=== PATIENT | female | born 1995 | race Caucasian/White ===

== ENCOUNTER 2019-05-24 16:34 | Inpatient (IN) | payer OTHER ==
[~2019-05-24] VITALS: Ht 160 cm; Wt 56.7 kg
--- NOTE | 2019-05-24 16:50 | NUR ---
ED Nurse Note: Patient walked into ED c/o nausea and vomiting since this morning. patient reports she has hx of type 1 dm and cyclic vomiting. patient is alert awake x4 ambulatory
[2019-05-24] MEDS ORDERED: Morphine Sulfate 4mg/ml Inj (IV USE ONLY) IVP ONE ×2 (17:00→21:15)
--- NOTE | 2019-05-24 17:15 | NUR ---
ED Nurse Note: Endorsed patient to Dennise RN. patient transferred to bed 1
--- NOTE | 2019-05-24 17:20 | NUR ---
attempted EKG, patient actively vomiting. will attempt ekg later. ermd notified.
[2019-05-24 17:25] LABS: BASOPHILS % (AUTO) 0.5 % (0.0-2.0); HEMATOCRIT 41.9 % (37.0-47.0); HEMOGLOBIN 13.7 G/DL (12.0-16.0); LYMPHOCYTES % (AUTO) 14.8 % (20.0-45.0); MEAN CORPUSCULAR VOLUME 84 FL (80-99); NEUTROPHILS % (AUTO) 79.7 % (45.0-75.0); PLATELET COUNT 515 K/UL (150-450); RED BLOOD COUNT 4.97 M/UL (4.20-5.40); RED CELL DISTRIBUTION WIDTH 11.6 % (11.6-14.8)
--- NOTE | 2019-05-24 17:26 | NUR ---
ED Nurse Note: pt vomitted, ermd made aware and ordered zorfran iv, pt able to tolerate well.
[2019-05-24 17:29] LABS: APPEARANCE,URINE SLIGHTLY CLOUDY; BILIRUBIN, URINE NEGATIVE (NEGATIVE); GLUCOSE, URINE (UA) 4+ (NEGATIVE); KETONES,URINE 4+ (NEGATIVE); LEUKOCYTE ESTERASE ,URINE 1+ (NEGATIVE); NITRITE,URINE NEGATIVE (NEGATIVE); PH,URINE 6 (4.5-8.0); PROTEIN,URINE 4+ (NEGATIVE); UROBILINOGEN,URINE 1 MG/DL (0.0-1.0)
[2019-05-24 17:30] VITALS: BP 186/99
[2019-05-24 17:33] LABS: COLOR,URINE YELLOW
[2019-05-24 17:40] LABS: ANION GAP 15 mmol/L (5-15); BLOOD UREA NITROGEN 16 mg/dL (7-18); CALCIUM 9.4 MG/DL (8.5-10.1); CARBON DIOXIDE 21 MMOL/L (21-32); CHLORIDE 104 MMOL/L (98-107); CREATININE 1.4 MG/DL (0.55-1.30); POTASSIUM 3.6 MMOL/L (3.5-5.1); SODIUM 140 MMOL/L (136-145)
[2019-05-24 17:45] LABS: ALANINE AMINOTRANSFERASE 30 U/L (12-78); ALBUMIN 3.8 G/DL (3.4-5.0); ALKALINE PHOSPHATASE 59 U/L (46-116); ASPARTATE AMINO TRANSFERASE 23 U/L (15-37); BILIRUBIN,TOTAL 0.9 MG/DL (0.2-1.0)
[2019-05-24] MEDS ORDERED: LORazepam Inj 2mg/ml 1ml IV ONE ×2 (17:45→20:15)
--- NOTE | 2019-05-24 18:10 | NUR ---
ED Nurse Note: pt is still vomiting, ermd made aware and ordered ivpb mag so4.
--- NOTE | 2019-05-24 18:15 | Diagnostic Imaging Report ---
EXAM: XR Chest, 1 View CLINICAL HISTORY: PAIN TECHNIQUE: Frontal view of the chest. COMPARISON: No relevant prior studies available. FINDINGS: Lungs: Unremarkable. No consolidation. Pleural space: Unremarkable. No pneumothorax. Heart: Unremarkable. No cardiomegaly. Mediastinum: Unremarkable. Bones/joints: Unremarkable. IMPRESSION: No evidence of acute pulmonary disease
[2019-05-24] MEDS ORDERED: HUMALOG100 UNIT/4 SUBQ (18:19)
--- NOTE | 2019-05-24 18:31 | Emergency Room Report ---
History of Present Illness General Chief Complaint: Abdominal Pain Source: Patient (Florentin Ramires) Present Illness HPI 23-year-old female with history of type 1 diabetes here complaining of a 1 day of multiple bouts of emesis and epigastric abdominal pain. Patient reports that she used cocaine last week as well as has been eating cake for the past few days. Patient is from [place] [facility]. Denies any alcohol intake. Patient reports that she checks her sugar every day and is compliant with her insulin. Patient reports that she has an unknown condition that causes her to have multiple bouts of emesis and usually takes Ativan, Phenergan, and Zofran. Patient reports shortness of breath however denies chest pain, palpitation, diarrhea, blood in her emesis. Patient appears in moderate distress with jerking movements as well as active emesis. She appears to be cyclic bouts of hematemesis. Denies any drug use and tobacco smoke. Denies syncope loss of consciousness, and all other associated symptoms. Denies urinary symptoms (Florentin Ramires) Allergies: Coded Allergies: No Known Allergies (Unverified , 05/24/19) Patient History Past Medical History: see triage record Past Surgical History: unable to obtain Pertinent Family History: none Last Menstrual Period: 05/08/19 Now: No Immunizations: UTD Reviewed Nursing Documentation: PMH: Agreed; PSxH: Agreed (Florentin Ramires) Nursing Documentation-PMH Past Medical History: No History, Except For Hx Diabetes: Yes - type I History Of Psychiatric Problem: Yes - bipolar (Florentin Ramires) Review of Systems All Other Systems: negative except mentioned in HPI (Florentin Ramires) Physical Exam Vital Signs Date Time Temp Pulse Resp B/P (MAP) Pulse Ox O2 Delivery O2 Flow Rate FiO2 05/24/19 16:41 98.4 110 18 186/99 (128) 100 Room Air Sp02 EP Interpretation: abnormal General Appearance: alert, GCS 15, non-toxic, moderate distress Head: normocephalic, atraumatic Eyes: bilateral eye normal inspection, bilateral eye PERRL ENT: normal ENT inspection, hearing grossly normal, normal pharynx Neck: normal inspection, full range of motion, supple, thyroid normal, no carotid bruits Respiratory: normal inspection, chest non-tender, lungs clear, no rhonchi, no respiratory distress, no accessory muscle use, no wheezing Cardiovascular #1: no edema, no murmur, normal capillary refill, tachycardia Gastrointestinal: normal inspection, non tender, soft, no peritonitis, no bruit , no guarding, no hernia, no pulsatile mass, no rebound Rectal: deferred Genitourinary: no CVA tenderness Musculoskeletal: normal inspection, back normal, digits/nails normal Neurologic: normal inspection, alert, oriented x3, responsive Psychiatric: normal inspection, judgement/insight normal, memory normal Skin: no rash Lymphatic: normal inspection, no adenopathy (Florentin Ramires) Medical Decision Making PA Attestation All my diagnosis and treatment plans were reviewed ad discussed with my supervising physician Dr. Sanchez (Florentin Ramires) Diagnostic Impression: Primary Impression: Cyclic vomiting syndrome ER Course 23-year-old female with history of type 1 diabetes here complaining of a 1 day of multiple bouts of emesis and epigastric abdominal pain. Patient reports that she used cocaine last week as well as has been eating cake for the past few days. Patient is from [place] [facility]. Denies any alcohol intake. Patient reports that she checks her sugar every day and is compliant with her insulin. Patient reports that she has an unknown condition that causes her to have multiple bouts of emesis and usually takes Ativan, Phenergan, and Zofran. Patient reports shortness of breath however denies chest pain, palpitation, diarrhea, blood in her emesis. Patient appears in moderate distress with jerking movements as well as active emesis. She appears to be cyclic bouts of hematemesis. Denies any drug use and tobacco smoke. Denies syncope loss of consciousness, and all other associated symptoms. Denies urinary symptoms Ddx considered but are not limited to: appendicitis, cholecystis, gastritis, gastroenteritis, UTI, pyelonephritis, SBO, diverticulitis, influenza with GI manifestation, SC, DKA, cyclic vomiting syndrome Vital signs: are WNL, pt. is afebrile H&PE are most consistent with: Cyclic vomiting syndrome ORDERS: EKG, abdominal site,DKA work up, ED INTERVENTIONS: NS bolus, Haldol, Ativan, Zofran, Phenergan, rocephin Patient was admited with diagnosis of cyclic vomiting syndrome to Dr. Ruiz under supervision of DrWilian: Daniel pt stable at time of admission Creatinine of 1.4, glucose of 254,leukocytes and urine (Florentin Ramires) ER Course Signed out to me pending CT pelvis. She is being admitted for cyclic vomiting syndrome. CT is unremarkable except for small hiatal hernia. No obstruction. (Abhijeet Guerin MD) EKG Diagnostic Results Rate: normal Rhythm: NSR ST Segments: no acute changes (Florentin Ramires) Chest X-Ray Diagnostic Results Chest X-Ray Diagnostic Results : Chest X-Ray Ordered: Yes # of Views/Limited/Complete: 1 View Indication: Other PA Xray: Interpretation reviewed, by supervising MD, and agrees with findings. Interpretation: no consolidation, no effusion, no pneumothorax Impression: No acute disease Electronically Signed by: Florentin James PA-C (Florentin Ramires) CT/MRI/US Diagnostic Results CT/MRI/US Diagnostic Results : Imaging Test Ordered: CT abdomen pelvis Impression Read by radiologist. Small hiatal hernia. (Abhijeet Guerin MD) Last Vital Signs Date Time Temp Pulse Resp B/P (MAP) Pulse Ox O2 Delivery O2 Flow Rate FiO2 05/24/19 17:30 110 18 Room Air 05/24/19 17:30 98.4 186/99 100 (Florentin Ramires) Disposition: ADMITTED INPATIENT Condition: Stable Florentin Ramires May 24, 2019 18:31 Abhijeet Guerin MD May 24, 2019 23:27
[2019-05-24] MEDS ORDERED: Haloperidol Decanoate 50mg Inj IM ONE ×2 (19:15→21:30)
--- NOTE | 2019-05-24 19:15 | NUR ---
ED Nurse Note: recieved report from sayda wiley to resume care, pt in bed awake, alert and oriented x 4, pt is currently actively vomiting, about 300ml of phelm like emesis noted, pt is crying due to abd pain, pt was recently medicated with many meds, pt noted to have infiltrated iv line, line removed, will start new line and give meds as ordered, pt also very agitated and restless, v/s un-stable but not very accurate due to pt movement, md is aware, will resume care and prepare for hospital admission.
[2019-05-24] MEDS ORDERED: cefTRIAXone 1 GM in NS 55 ML IVPB ONE (20:00)
[2019-05-24 20:15] VITALS: BP 160/91
[2019-05-24 20:38] LABS: INR 0.9 (0.9-1.1)
--- NOTE | 2019-05-24 21:00 | NUR ---
ED Nurse Note: pt continues to have active vomiting x 2, remains very restless and agitated, v/s also non-stabl;e, pt deneis cp, no sob or labored breathing, only states has abdominal pain, md aware, new med orders recieved, will medicate and monitor for effectiveness, pt also has room for admission, v/s not stable for admit, pt to now have ct before admission to floor.
[2019-05-24 21:25] VITALS: BP 155/93
[2019-05-24] MEDS ORDERED: Isovue-300 100ml vial INJ PRN (21:30)
--- NOTE | 2019-05-24 22:00 | NUR ---
ED Nurse Note: Pt in bed sleeping, arouses to verbal stimuli, meds given now appear to be effective, v/s stable, waiting for ct-scan for admission, iv site patent, will continue to closely monitor.
--- NOTE | 2019-05-24 22:50 | NUR ---
ED Nurse Note: Pt completed ct-scan, results negative, now sending pt to admittiosn bed, pt is awake, alert and orieneted, iv site patent, pt continues to be agitated and restless and having active emesis, many meds given, non-effective, belongings list completed, no sob or labored breathing, pt denies cp, pt taken to floor unit via gurney and acls protocols, nad noted during d/c to floor.
[2019-05-24 23:00] VITALS: BP 152/58
--- NOTE | 2019-05-24 23:09 | Diagnostic Imaging Report ---
EXAM: CT Abdomen and Pelvis Without Intravenous Contrast CLINICAL HISTORY: ABD PAIN TECHNIQUE: Axial computed tomography images of the abdomen and pelvis without intravenous contrast. CTDI is 10.75 mGy and DLP is 564 mGy-cm. One or more of the following dose reduction techniques were used: automated exposure control, adjustment of the mA and/or kV according to patient size, use of iterative reconstruction technique. COMPARISON: No relevant prior studies available. FINDINGS: Lung bases: Unremarkable. No mass. No consolidation. ABDOMEN: Liver: Unremarkable. Gallbladder and bile ducts: Unremarkable. No calcified stones. No ductal dilation. Pancreas: Unremarkable. No ductal dilation. Spleen: Unremarkable. No splenomegaly. Adrenals: Unremarkable. No mass. Kidneys and ureters: Unremarkable. No obstructing stones. No hydronephrosis. Stomach and bowel: Small hiatal hernia. No bowel obstruction or perforation. PELVIS: Appendix: Unremarkable appendix. Bladder: Unremarkable. No stones. Reproductive: Unremarkable as visualized. ABDOMEN and PELVIS: Intraperitoneal space: Unremarkable. No free air. No significant fluid collection. Bones/joints: No acute fracture. No dislocation. Soft tissues: Unremarkable. Vasculature: Unremarkable. No abdominal aortic aneurysm. Lymph nodes: Unremarkable. No enlarged lymph nodes. IMPRESSION: Small hiatal hernia. Otherwise unremarkable noncontrast exam of the abdomen and pelvis.
--- NOTE | 2019-05-24 23:20 | NUR ---
NURSE NOTES: Report taken from REFINING MACHINE OPERATORBia.
--- NOTE | 2019-05-24 23:25 | NUR ---
NURSE NOTES: Patient brought to floor by [facility], via hospital bed. Patient ambulatory, A&Ox4. No signs of distress on room air. She is very agitated, restless and in pain, 10/10, primarily in her abdomen and with some radiating pain to her low back. Skin is c/d/i, has some bruising present from previous IV sites. IV site infiltrated and removed, will place new IV. Belongings list reviewed/signed at bedside. MD contacted. Bed in lowest position, call light within reach.
[2019-05-24] MEDS ORDERED: D5NS 1,000 ML IV SCH (23:30)
[2019-05-24] MEDS: D5NS 1,000 ML IV SCH (23:30)
[2019-05-24] MEDS ORDERED: LORazepam 0.5mg tab SL PRN (23:45)
[2019-05-24] MEDS ORDERED: Morphine Sulfate 2mg/ml Inj(IV/IM USE ONLY) IVP PRN (23:45)
[2019-05-25] VITALS: BP 194/105
--- NOTE | 2019-05-25 00:30 | NUR ---
NURSE NOTES: New IV placed, Lt AC 22G.
[2019-05-25] MEDS: D5NS 1,000 ML IV SCH ×2 (00:34→06:00)
--- NOTE | 2019-05-25 01:30 | NUR ---
NURSE NOTES: Previous IV site infiltrated. Contacted ICU for help with placement of new IV line. Attempt to place new IV was unsuccessful. Dr. Monroe contacted, Stated that he will put an order in for a central line. Consulted with Dr. Yovani MD is aware, he will place line in the AM.
--- NOTE | 2019-05-25 01:30 | NUR ---
NURSE NOTES: IV infusions that were started on eMAR were stopped due to no IV access. aware.
--- NOTE | 2019-05-25 02:30 | History and Physical Report ---
DATE OF ADMISSION: 05/24/2019 REASON FOR ADMISSION: Intractable vomiting in the setting of diabetes and possible ketosis. HISTORY OF PRESENT ILLNESS: This 23-year-old insulin requiring diabetic traveled here from [place] for a short vacation. She started having nausea and epigastric pain prior to her trip. Upon arriving here, no symptoms worsened. The patient came to the emergency room where she was given IV Zofran, lorazepam, and Phenergan in addition to 10 5 mg doses of IM Haldol and two 4 mg IV doses of morphine. I was contacted subsequent to that for hospitalization. The patient has continued abdominal discomfort and nausea with vomiting. She admits to using cocaine a couple of weeks ago. She was last hospitalized for similar GI symptoms about a month ago and does have a history of chronic cyclic vomiting episodes. PAST MEDICAL HISTORY: Insulin requiring diabetes mellitus and gastroparesis. ALLERGIES: None. FAMILY HISTORY: Noncontributory. SOCIAL HISTORY: Nonsmoker. No alcohol abuse. Rare episodes "of cocaine use." MEDICATIONS: Prior to admission include insulin Lantus and NovoLog. REVIEW OF SYSTEMS: Otherwise unremarkable. PHYSICAL EXAMINATION: GENERAL: Thin, frail, but in no acute distress. VITAL SIGNS: Blood pressure earlier 186/99, presently 152/58; heart rate 92; respiratory rate 18; and afebrile. HEENT: Conjunctivae pink. Oropharynx clear. Mucous membranes dry. NECK: Supple. Jugular venous pressure normal. LUNGS: Clear. CARDIAC: Regular rhythm and rate. Normal S1, S2. No murmur, rub, or gallop. ABDOMEN: Diffusely tender, but soft with no guarding or rebound. There is no CVA tenderness. EXTREMITIES: With no clubbing, cyanosis, or edema. SKIN: Intact. NEUROLOGIC: Nonfocal. LABORATORY DATA: White count 13, hemoglobin 13.7. Sodium 140, potassium 3.6, bicarb 21, BUN 16, and creatinine 1.4. Magnesium 1.4. Albumin 3.8. Glucose 275. Urinalysis with 10 to 15 white cells, moderate bacteria, and 4+ ketones. Toxicology screen is positive for small amount of acetone and marijuana. No cocaine. CAT scan of the abdomen is notable only for small hiatal hernia. IMPRESSION: 1. Cyclic vomiting. 2. Insulin requiring diabetes mellitus with possible ketosis. 3. Hypomagnesemia. 4. Hypovolemia and dehydration. 5. History of cocaine abuse. PLAN: 1. Aggressive IV fluid hydration. 2. IV magnesium. 3. Antiemetics. 4. Symptom-guided pain control. 5. Check ketones in the blood. 6. Check amylase and lipase. 7. Insulin coverage by sliding scale in addition to long-acting insulin. 8. Clear liquid diet and advance as clinical condition warrants. Allen Monroe M.D. DR: GRANT JOB#: [id number] CC:
[2019-05-25 04:00] VITALS: BP 150/95
[2019-05-25] MEDS ORDERED: NovoLOG Insulin Flexpen SUBQ SCH ×2 (06:30)
[2019-05-25 07:11] LABS: HEMATOCRIT 45.3 % (37.0-47.0); HEMOGLOBIN 14.6 G/DL (12.0-16.0); MEAN CORPUSCULAR VOLUME 86 FL (80-99); PLATELET COUNT 408 K/UL (150-450); RED BLOOD COUNT 5.28 M/UL (4.20-5.40); WHITE BLOOD COUNT 16.9 K/UL (4.8-10.8)
[2019-05-25 07:17] LABS: AMYLASE 77 U/L (25-115)
--- NOTE | 2019-05-25 07:32 | NUR ---
HAND-OFF: Report given to JEMAL Capps. Patient is awake and stable.
[2019-05-25 07:48] LABS: ALANINE AMINOTRANSFERASE 49 U/L (12-78); ALBUMIN 3.9 G/DL (3.4-5.0); ALBUMIN/GLOBULIN RATIO 0.9 (1.0-2.7); ALKALINE PHOSPHATASE 67 U/L (46-116); ANION GAP 23 mmol/L (5-15); ASPARTATE AMINO TRANSFERASE 49 U/L (15-37); BLOOD UREA NITROGEN 15 mg/dL (7-18); CALCIUM 9.6 MG/DL (8.5-10.1); CARBON DIOXIDE 17 MMOL/L (21-32); CHLORIDE 98 MMOL/L (98-107); CREATININE 1.5 MG/DL (0.55-1.30); POTASSIUM 3.7 MMOL/L (3.5-5.1); SODIUM 138 MMOL/L (136-145)
[2019-05-25 08:30] VITALS: BP 183/118
[2019-05-25] MEDS ORDERED: LORazepam 0.5mg tab SL PRN (08:30)
--- NOTE | 2019-05-25 08:31 | NUR ---
CHARGE NURSE NOTE: Pt states that she wants to leave AMA. Pt notified about her high blood pressure 188/118, hr 125bpm. 's order to transfer to telemetry. Pt refused states that she has to leave around 9:30. Hillary CRUMP notified. will be notified.
--- NOTE | 2019-05-25 08:40 | NUR ---
NURSE NOTES: During shift change patient awake alert with complaints of anxiety and nausea, Zofran given by previous shift nurse, IV on bilateral foot no order MD aware per previous nurse, D5NS at 200ml/hr running pt. has a history of diabetes type I, aware per JEMAL Lees. BP at 8;30am 183/129 HR 129 MD notified order to transfer to [facility] and give Hydralazine received, rubber goods supervisor and CN notified patient verbalized she is leaving in 1hr, RN and CN explained the risk high BP and high HR as well as discontinuing care patient verbalize she understand the risk of going with high blood pressure and high HR, stated she has a flight to [place] as soon as she arrive she will go to the hospital in [place] she is visiting [place] she can't stay. Boyfriend coming at 10am to pick her up Ativan 0.5 PO given for anxiety and ordered IV Mag given will continue to monitor.
--- NOTE | 2019-05-25 08:44 | NUR ---
CHARGE NURSE NOTE: Spoke with , notified him that patient wants to leave AMA.
[2019-05-25 09:30] VITALS: BP 148/98
--- NOTE | 2019-05-25 10:25 | NUR ---
AMA: SEE AMA FORM. Patient left AMA notified Dr. Moore, pt verbalized understanding the risk of discontinuing the plan of care, verbalized" she is from [place] visiting here and has a flight this afternoon, "I will go and when I arrive I will go to ER in [place]" during discharge the BP was 148/98 HR 108. anxiety decreased picked up by boyfriend,
[2019-05-25] MEDS ORDERED: D5NS 1000ml IV ONE (10:29)
[2019-05-25] MEDS ORDERED: Tubing IV Secondary IV ONE (10:29)
[2019-05-25] MEDS ORDERED: cefTRIAXone 1 GM in D5W 55 ML IVPB SCH (20:00)
[2019-05-25] MEDS ORDERED: Levemir Flexpen SUBQ SCH (21:00)
--- NOTE | 2019-05-25 21:45 | Consultation ---
DATE OF CONSULTATION: 05/25/2019 GASTROENTEROLOGY CONSULTATION CONSULTING PHYSICIAN: Hector Albert M.D. REFERRING PHYSICIAN: Allen Monroe M.D. CHIEF COMPLAINT: I was asked to see this patient by Dr. Allen Monroe for evaluation of vomiting. HISTORY OF PRESENT ILLNESS: The patient is a 23-year-old white woman who is here from [place] on a trip. The patient has insulin-dependent diabetes and a longstanding history of nausea and vomiting. The vomiting has resulted in hospitalization approximately every other month for the past year. She has had extensive workup including endoscopy, upper GI series, nuclear medicine gastric emptying study, and other tests. She states she has been diagnosed with cyclic nausea and vomiting syndrome. In the past, she had been placed on Elavil with just some modest result, but this was discontinued due to other issues. She also has history of bipolar disorder and has been off of her medication because of vomiting. She has been given intermittent doses of Zofran, which she takes at home because of refractoriness of her vomiting. She has also been given Ativan. Unfortunately, she also now takes the Ativan on a daily basis at least once a day or perhaps more. She came to the hospital because of concern of nausea and vomiting. She feels not back to baseline today, but has to leave against medical advice because she is apparently leaving back to [facility]. She also admits to using cocaine a few weeks ago. PAST MEDICAL HISTORY: History of cyclic nausea and vomiting syndrome, history of bipolar disorder, and insulin-dependent diabetes with sugars running in the low 200s. FAMILY HISTORY: Positive for hypertension. SOCIAL HISTORY: The patient smokes marijuana, but she states she only smokes 2-3 times a week and this vomiting did not stop even though when she stopped marijuana for 6 months. ALLERGIES: None. REVIEW OF SYSTEMS: Otherwise negative. PHYSICAL EXAMINATION: GENERAL: A thin white woman, seen in her room. HEENT: Normocephalic and atraumatic. Sclerae anicteric. Oropharynx clear. NECK: Supple. CHEST: Clear to auscultation. CARDIOVASCULAR: Revealed regular rate. ABDOMEN: Soft and nontender. EXTREMITIES: Revealed no edema. LABORATORY DATA: Noted. ASSESSMENT: This patient presents with recurrent nausea and vomiting, which is a longstanding disorder for this patient. She has been diagnosed with cyclic nausea and vomiting syndrome, which is certainly on the differential, however, I am concerned about the Ativan use of her and in fact, I am concerned if withdrawal from Ativan could be responsible for some of her attacks. I have advised her to wean off of this medication also. I also advised her about cannabis hyperemesis syndrome since she does use this material. The patient was advised that she would have to leave against medical advice because today for her to leave. I would hydrate her aggressively until then. She was advised to check in to the hospital as soon as she gets back to [place]. RECOMMENDATIONS: Per above discussion and per orders written in the chart. Thank you for asking me to participate in the care of this patient. Hector Albert M.D. DR: Joann JOB#: [id number] CC: COLIN
[2019-05-25] MEDS ORDERED: D5NS 1,000 ML IV SCH (23:30)
--- NOTE | 2019-05-26 14:49 | NUR ---
*-* INSURANCE *-* ALL CLINICALS AND AMA NURSES NOTES HAVE BEEN FAXED TO: ANAM KNIGHT:RADHA P:[phone] F:[phone]
--- NOTE | 2019-05-27 09:29 | Discharge Summary ---
Discharge Summary Discharge Summary _ DATE OF ADMISSION: 05/24/2019 DATE OF DISCHARGE: 05/25/2019 Patient signed AGAINST MEDICAL ADVICE REASON FOR ADMISSION: 23 years old female with past medical history of diabetes mellitus and gastroparesis, traveled from [place] for short vacation. She started to have nausea, epigastric pain even prior to her trip. Upon arrival to [place] symptoms worsened. Patient came to emergency room, where she received IV Zofran, lorazepam, and Phenergan in addition to pain management. Patient continued to have abdominal discomfort with nausea and vomiting. Patient admitted to using cocaine few weeks ago. Patient was last hospitalized for similar symptoms GI symptoms about 2 months ago and reported history of chronic cyclic vomiting episode. Urine toxicology screen was positive for marijuana. Chest x-ray revealed no acute pulmonary cardiopulmonary pathology. CT of the abdomen and pelvis demonstrated small hiatal hernia, otherwise unremarkable Patient subsequently was admitted to medical surgical floor for cyclic vomiting syndrome. HOSPITAL COURSE: Patient admitted to medical surgical floor Patient started on aggressive IV fluids. Pain management was addressed. Symptomatic treatment provided. Magnesium replaced. Amylase and lipase were stable. Blood sugar was managed with long-acting insulin along with sliding scale of insulin. Patient started on clear liquid diet with plan to advance as tolerated. Patient decided to leave AGAINST MEDICAL ADVICE. The risks and consequences of signing AGAINST MEDICAL ADVICE were discussed with patient in detail. Patient verbalized understanding, nevertheless signed AMA form and left. FINAL DIAGNOSES: Cyclic vomiting syndrome Insulin required diabetes mellitus Hypomagnesemia Dehydration and hypovolemia History of cocaine abuse I have been assigned to dictate discharge summary for this account. I was not involved in the patient's management. Teresa Lao NP May 27, 2019 09:29
--- NOTE | 2019-05-27 12:57 | NUR ---
*-* INSURANCE *-* DISCHARGE SUMMARY HAS BEEN FAXED TO: ANAM KNIGHT:RADHA P:[phone] F:[phone]
--- NOTE | 2019-05-27 17:46 | Cardiology Report ---
APPROVED REPORT EKG Measurement Heart [id number] MA [id number] Sinus tachycardia Otherwise normal ECG
== END 2019-05-25 10:30 | disposition left against medical advice (07) | DRG 392 ==
LOC: EMR 17:00 → 3E 18:49 → EDBEDREQ 20:15
DX: K31.89 Other diseases of stomach and duodenum (principal); R11.2 Nausea with vomiting, unspecified; Z79.4 Long term (current) use of insulin; E83.42 Hypomagnesemia; E86.0 Dehydration; E10.9 Type 1 diabetes mellitus without complications; F14.11 Cocaine abuse, in remission; F31.9 Bipolar disorder, unspecified
CPT/HCPCS: 36415; 71045; 74176; 80053; 80307; 80329; 81001; 81025; 82009; 82150; 82962; 83036; 83690; 83735; 84443; 85007; 85025; 85610; 85651; 85730; 86850; 86900; 86901; 87086; 93005; 96361; 96365; 96367; 96372; 96375; 96376; 99285; J1815; J2405; S5561